=== PATIENT | female | born 1995 ===

== ENCOUNTER 2018-05-05 14:46 | Emergency (ER) | payer OTHER ==
--- NOTE | 2018-05-05 16:16 | UC ---
Dizzy HPI HPI Summary: Patient complains of sudden onset dizziness with head movement and position change 2 weeks. Patient able to ambulate, states symptoms are mild but concerning. Also complains of mild nausea with onset of dizziness. Denies prior history of same symptoms, fever, cough, sore throat, CP, SOB, V/D, abdominal pain, change in urine, change in BM Medical history is none - History Of Current Complaint Chief Complaint: UCDizziness Stated Complaint: DIZZINESS Time Seen by Provider: 05/05/18 16:01 Hx Obtained From: Patient Hx Last Menstrual Period: 05/02/2018 ?: No Onset/Duration: Gradual Onset Timing: Constant Severity Initially: Mild Severity Currently: Mild Pain Intensity: 0 Pain Scale Used: 0-10 Numeric Character: Head Spinning Aggravating Factor(s): Position Change, Change In Head Position Alleviating Factor(s): Rest, Lying Down Associated Signs And Symptoms: Positive: Nausea - Allergies/Home Medications Allergies/Adverse Reactions: Allergies Allergy/AdvReac Type Severity Reaction Status Date / Time No Known Allergies Allergy Verified 05/05/18 15:50 Home Medications: Home Medications Famotidine [Acid Controller] 20 mg PO 05/05/18 [History] PMH/Surg Hx/FS Hx/Imm Hx - Surgical History Surgical History: None - Family History Known Family History: Positive: None - Social History Alcohol Use: None Substance Use Type: None Smoking Status (MU): Never Smoked Tobacco Review of Systems Constitutional: Negative Skin: Negative Eyes: Negative ENT: Negative Respiratory: Negative Cardiovascular: Negative Gastrointestinal: Negative Genitourinary: Negative Motor: Negative Neurovascular: Negative Musculoskeletal: Negative Neurological: Negative Psychological: Negative All Other Systems Reviewed And Are Negative: Yes Physical Exam - Summary Physical Exam Summary: Neuro exam normal. Triage Information Reviewed: Yes Appearance: Well-Appearing Vital Signs: Initial Vital Signs Temp 99.4 F 05/05/18 15:28 Pulse 89 05/05/18 15:28 Resp 16 05/05/18 15:28 BP 114/72 05/05/18 15:28 Pulse Ox 98 05/05/18 15:28 Vital Signs Reviewed: Yes Eye Exam: Normal Neck exam: Normal Respiratory Exam: Normal Cardiovascular Exam: Normal Abdominal Exam: Normal Musculoskeletal Exam: Normal Neurological Exam: Normal Psychological Exam: Normal Skin Exam: Normal Dizzy Course/Dx - Course Course Of Treatment: Patient complains of sudden onset dizziness with head movement and position change 2 weeks. Patient able to ambulate, states symptoms are mild but concerning. Also complains of mild nausea with onset of dizziness. Denies prior history of same symptoms, fever, cough, sore throat, CP , SOB, V/D, abdominal pain, change in urine, change in BM Medical history is none. Physical exam:Neuro exam normal. Vital signs normal. No exam normal. Symptoms are mild. Rx for meclizine. - Differential Dx/Diagnosis Provider Diagnoses: BPPV Discharge - Sign-Out/Discharge Documenting (check all that apply): Patient Departure All imaging exams completed and their final reports reviewed: No Studies - Discharge Plan Condition: Stable Disposition: HOME Prescriptions: Meclizine TAB* [Antivert 12.5 TAB*] 25 mg PO TID 14 Days #39 tab Patient Education Materials: Benign Paroxysmal Positional Vertigo (ED) Referrals: No Primary Care Phys,NOPCP [Primary Care Provider] - Additional Instructions: Return for any new or worsening symptoms. - Billing Disposition and Condition Condition: STABLE Disposition: Home - Attestation Statements Provider Attestation: I was available for consult. This patient was seen by the JEANNINE. The patient was not presented to, seen by, or examined by me. -Luis Carlos
== END 2018-05-05 16:25 | disposition home or self-care (01) ==
LOC: UCEAST 14:46
DX: H81.10 Benign paroxysmal vertigo, unspecified ear (principal); R11.0 Nausea
CPT/HCPCS: 99202; G0463